=== PATIENT | male | born 1995 | race Caucasian/White ===

== ENCOUNTER 2016-05-08 13:54 | Emergency (ER) | payer OTHER ==
[2016-05-08 14:04] VITALS: BP 125/86; PULSE 79; RESP 20; TEMP 98.5
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
== END 2016-05-08 15:27 | disposition home or self-care (01) ==
LOC: EC 13:54
DX: J02.9 Acute pharyngitis, unspecified (principal); F17.200 Nicotine dependence, unspecified, uncomplicated
CPT/HCPCS: 87081; 87430; 99283

== ENCOUNTER 2017-10-26 10:20 | Day surgery (SDC) | payer BC, OTHER ==
[2017-10-25 08:24] VITALS: BMI 29.5
[~2017-10-26 10:20] MED LIST: LACTATED RINGERS 1,000 ML IV SCH
[2017-10-26] MEDS ORDERED: LIDOCAINE 1% 20 ML VIAL (10MG/ML) FOR IV START INTRADERMA ONE (10:54)
[2017-10-26 11:04] VITALS: RESP 16; TEMP 97.8
[2017-10-26] MEDS ORDERED: LIDOCAINE 1% INJ 10MG/ML (20 ML MDV) ONE (11:32)
[2017-10-26] MEDS ORDERED: PROPOFOL 10 MG/ML 20 ML VIAL IV ONE (11:32)
[2017-10-26 12:10] VITALS: PULSE 56
[2017-10-26 12:24] VITALS: BP 116/62
--- NOTE | 2017-10-26 12:31 | P.PCN ---
Date of Procedure: 10/26/17 Procedure(s) Performed: Procedure: Colonoscopy and biopsy. Preoperative diagnosis: Rectal bleeding and change in bowel habits. Postoperative diagnosis: 1. Exam or the colon and terminal ileum within normal limits. 2. Biopsies obtained from the terminal ileum and randomly from the colon. Preparation: HalfLytely prep. Sedation: Was provided by anesthesia. Brief clinical history: The patient is a 22-year-old male who I have evaluated in the office last month in follow-up for rectal bleeding. He reported having change in his bowels as well with softer, almost diarrheic stools up to 4 times daily. This evaluation is scheduled to rule out inflammatory bowel disease or other pathology. Procedure: With the patient on his left lateral decubitus position and after informed consent and adequate sedation, the perianal area was inspected and it did not show any fissures or fistulas. There were no masses felt on digital rectal examination. The Olympus CFQ 160L video colonoscope was then inserted in the rectum in the usual fashion and advanced to the cecum. I intubated the ileocecal valve and examined the terminal ileum. Terminal ileum and colon appeared healthy with no edema, erythema, friability, ulceration, exudation or spontaneous bleeding. No polyps or tumors were seen or any obvious diverticular disease or other pathology. Because of his symptoms, I obtained biopsies from the terminal ileum and randomly from the colon then I retroflexed the endoscope in the rectum before the endoscope was withdrawn. The patient tolerated the procedure well. Plan: The patient was reassured and I discussed with his mother. Although I did not see any evidence of hemorrhoids or fissures, I suggested that it is possible that he might be bleeding intermittently from a superficial fissure that has healed prior to this evaluation today. I discussed dietary measures and I suggested that he follow-up in the office for additional recommendations based on his course and biopsy results. I will keep you updated on his progress.
== END 2017-10-26 12:33 | disposition home or self-care (01) ==
LOC: ORWHC2ENDO 10:20
DX: K62.5 Hemorrhage of anus and rectum (principal); R19.4 Change in bowel habit; Z79.1 Long term (current) use of non-steroidal anti-inflammatories (NSAID); F17.200 Nicotine dependence, unspecified, uncomplicated
CPT/HCPCS: 88305; 45380; J2001; J2704

== ENCOUNTER 2023-02-01 13:03 | Emergency (ER) | payer BC ==
--- NOTE | 2023-02-01 13:14 | ED ---
General Adult HPI - General Source: patient, RN notes reviewed Mode of arrival: ambulatory Limitations: no limitations <Lucia Cabrear - Last Filed: 02/01/23 13:13> - General Source: RN notes reviewed, old records reviewed - History of Present Illness -: days(s) Location: abdomen Radiation: abdomen Severity scale (1-10): 6 Quality: sharp Consistency: colicky Improves with: none Associated Symptoms: loss of appetite, nausea/vomiting, weakness Treatments Prior to Arrival: none <Fabián Holley - Last Filed: 02/08/23 19:29> - General Chief complaint: GI Bleed Stated complaint: possible gi bleed Time Seen by Provider: 02/01/23 13:05 - History of Present Illness Initial comments: 28-year-old male sent from urgent care for chief complaint of fever, chills, dark stools 2 days. He does admit to abdominal discomfort. He states that it is not evident that he has a bowel movement that he notices the blood. He does that occasionally it is bright red. (Lucia Cabrera) This is a 28-year-old female to the emergency department for evaluation blood in the urine abdominal pain abdominal discomfort nausea vomiting chills fever. Patient has had multiple visits including ER visit in urgent care visit for similar symptoms. The blood is more concerned and makes him more concerned to day with severe pain (Fabián Holley) - Related Data Home Medications Medication Instructions Recorded Confirmed Ibuprofen 200 mg PO Q6HR PRN 10/26/17 10/26/17 Allergies Allergy/AdvReac Type Severity Reaction Status Date / Time No Known Allergies Allergy Verified 10/26/17 10:50 Review of Systems ROS Other: All systems not noted in ROS Statement are negative. <Lucia Cabrera - Last Filed: 02/01/23 13:13> ROS Other: All systems not noted in ROS Statement are negative. <Fabián Holley - Last Filed: 02/08/23 19:29> ROS Statement: Those systems with pertinent positive or pertinent negative responses have been documented in the HPI. 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 RECENT RECTAL BLEEDING, PAIN AND DARK BLACK STOOLS History of Any Multi-Drug Resistant Organisms: None Reported Past Surgical History: Cardiac Ablation Past Anesthesia/Blood Transfusion Reactions: No Reported Reaction Past Psychological History: No Psychological Hx Reported Smoking Status: Never smoker Past Alcohol Use History: Occasional Past Drug Use History: None Reported - Past Family History Father Family Medical History: Cancer Additional Family Medical History / Comment(s): SKIN CANCER <Lucia Cabrera - Last Filed: 02/01/23 13:13> General Exam Limitations: no limitations <Lucia Cabrera - Last Filed: 02/01/23 13:13> General appearance: alert, in no apparent distress Head exam: Present: atraumatic, normocephalic, normal inspection Eye exam: Present: normal appearance, PERRL, EOMI. Absent: scleral icterus, conjunctival injection, periorbital swelling ENT exam: Present: normal exam, mucous membranes moist Neck exam: Present: normal inspection. Absent: tenderness, meningismus, lymphadenopathy Respiratory exam: Present: normal lung sounds bilaterally. Absent: respiratory distress, wheezes, rales, rhonchi, stridor Cardiovascular Exam: Present: regular rate, normal rhythm, normal heart sounds. Absent: systolic murmur, diastolic murmur, rubs, gallop, clicks GI/Abdominal exam: Present: soft, distended, tenderness, guarding, normal bowel sounds. Absent: rebound, rigid Extremities exam: Present: normal inspection, full ROM, normal capillary refill. Absent: tenderness, pedal edema, joint swelling, calf tenderness Back exam: Present: normal inspection Neurological exam: Present: alert, oriented X3, CN II-XII intact Psychiatric exam: Present: normal affect, normal mood Skin exam: Present: warm, dry, intact, normal color. Absent: rash <Fabián Holley - Last Filed: 02/08/23 19:29> - General Exam Comments Initial Comments: Visual Physical Exam Vital signs reviewed General: Well-appearing, nontoxic, no acute distress. Head: Normocephalic, atraumatic Eyes: PERRLA, EOMI ENT: Airway patent Chest: Nonlabored breathing Skin: No visual rash, normal skin tone Neuro: Alert and oriented 3 Musculoskeletal: No gross abnormalities (Lucia Cabrera) Course <Fabián Holley - Last Filed: 12/20/23 19:29> Vital Signs 02/01/23 02/01/23 13:05 17:55 Temperature 99.6 F 98.4 F Pulse Rate 88 59 L Respiratory 18 16 Rate Blood Pressure 104/62 117/60 O2 Sat by Pulse 97 98 Oximetry - Reevaluation(s) Reevaluation #1: Record is reviewed (Fabián Holley) Reevaluation #2: Patient symptoms are improved (Fabián Holley) Reevaluation #3: Patient informed results and questions answered (Fabián Holley) Reevaluation #4: Was pt. sent in by a medical professional or institution (, [facility], [employer], urgent care, hospital, or group home...) When possible be specific @ -no Did you speak to anyone other than the patient for history (EMS, parent, family, police, friend...)? What history was obtained from this source @ -no Did you review nursing and triage notes (agree or disagree)? Why? @ -agree Are old charts reviewed (outside hosp., previous admission, EMS record, old EKG, old radiological studies, urgent care reports/EKG's, group home records)? Report findings @ -yes Differential Diagnosis (chest pain, altered mental status, abdominal pain women, abdominal pain men, vaginal bleeding, weakness, fever, dyspnea, syncope, headache, dizziness, GI bleed, back pain, seizure, CVA, palpatations, mental health, musculoskeletal)? @ -prior EKG interpreted by me (3pts min.). @ -no X-rays interpreted by me (1pt min.). @ -no CT interpreted by me (1pt min.). @ -yes positive for mesenteric adenitis and colitis U/S interpreted by me (1pt. min.). @ -no What testing was considered but not performed or refused? (CT, X-rays, U/S, labs)? Why? @ -none What meds were considered but not given or refused? Why? @ -none Did you discuss the management of the patient with other professionals (professionals i.e. JOANIE Daugherty, [employer], lab, RT, psych nurse, social services coordinator, director [employer] sales, teacher, hospital chief financial officer, case work aide)? Give summary @ -no Was smoking cessation discussed for >3mins.? @ -no Was critical care preformed (if so, how long)? @ -no Were there social determinants of health that impacted care today? How? (Homelessness, low income, unemployed, alcoholism, drug addiction, transportation, low edu. Level, literacy, decrease access to med. care, fpc, rehab)? @ -none Was there de-escalation of care discussed even if they declined (Discuss DNR or withdrawal of care, Hospice)? DNR status @ -no What co-morbidities impacted this encounter? (DM, HTN, Smoking, COPD, CAD, Cancer, CVA, ARF, Chemo, Hep., AIDS, mental health diagnosis, sleep apnea, morbid obesity)? @ -none Was patient admitted / discharged? Hospital course, mention meds given and route, prescriptions, significant lab abnormalities, going to OR and other pertinent info. @ - 28 male with severe abdominal pain here in the ER. Signs and symptoms of mesenteric adenitis with colitis, patient is multiple ER visits and urgent care is a prior to this visit today for the pain is currently controlled patient feels well can be discharged home Discharge Undiagnosed new problem with uncertain prognosis? @ -no Drug Therapy requiring intensive monitoring for toxicity (Heparin, Nitro, Insulin, Cardizem)? @ -no Were any procedures done? @ -no Diagnosis/symptom? @ -Doubt pain, mesenteric adenitis, nausea vomiting diarrhea Acute, or Chronic, or Acute on Chronic? @ -Acute Uncomplicated (without systemic symptoms) or Complicated (systemic symptoms)? @ -Complicated Side effects of treatment? @ -no Exacerbation, Progression, or Severe Exacerbation? @ -exacerbation Poses a threat to life or bodily function? How? (Chest pain, [place], [place], pneumonia, PE, COPD, DKA, ARF, appy, cholecystitis, CVA, Diverticulitis, Homicidal, Suicidal, threat to staff... and all critical care pts) @ -no (Fabián Holley) Medical Decision Making <Lucia Cabrera - Last Filed: 02/01/23 13:13> - Lab Data Result diagrams: 02/01/23 13:11 02/01/23 13:11 - EKG Data -: EKG Interpreted by Me (EKG is sinus 72 DC 143 QRS 103 QTC 394) - Radiology Data Radiology results: report reviewed (CT of the abdomen and pelvis is negative for acute disease), image reviewed <Fabián Holley - Last Filed: 02/08/23 19:29> - Medical Decision Making Quick note preformed by Lucia Cabrera PA-C (Lucia Cabrera) 28 male with severe abdominal pain here in the ER. Signs and symptoms of mesenteric adenitis with colitis, patient is multiple ER visits and urgent care is a prior to this visit today for the pain is currently controlled patient feels well can be discharged home (Fabián Holley) - Lab Data Lab Results 02/01/23 02/01/23 02/01/23 Range/Units 13:11 13:11 13:11 WBC 4.1 (3.8-10.6) k/uL RBC 4.17 L (4.30-5.90) m/uL Hgb 13.1 (13.0-17.5) gm/dL Hct 40.4 (39.0-53.0) % MCV 96.9 (80.0-100.0) fL MCH 31.4 (25.0-35.0) pg MCHC 32.4 (31.0-37.0) g/dL RDW 12.9 (11.5-15.5) % Plt Count 195 (150-450) k/uL MPV 8.0 Neutrophils % 70 % Lymphocytes % 17 % Monocytes % 9 % Eosinophils % 1 % Basophils % 0 % Neutrophils # 2.8 (1.3-7.7) k/uL Lymphocytes # 0.7 L (1.0-4.8) k/uL Monocytes # 0.4 (0-1.0) k/uL Eosinophils # 0.0 (0-0.7) k/uL Basophils # 0.0 (0-0.2) k/uL Sodium 138 (137-145) mmol/L Potassium 4.1 (3.5-5.1) mmol/L Chloride 101 (98-107) mmol/L Carbon Dioxide 26 (22-30) mmol/L Anion Gap 11 mmol/L BUN 9 (9-20) mg/dL Creatinine 0.85 (0.66-1.25) mg/dL Est GFR (CKD-EPI)AfAm >90 (>60 ml/min/1.73 sqM) Est GFR (CKD-EPI)NonAf >90 (>60 ml/min/1.73 sqM) Glucose 101 H (74-99) mg/dL Calcium 9.0 (8.4-10.2) mg/dL Total Bilirubin 0.5 (0.2-1.3) mg/dL AST 23 (17-59) U/L ALT 39 (4-49) U/L Alkaline Phosphatase 70 (38-126) U/L Total Protein 6.6 (6.3-8.2) g/dL Albumin 3.9 (3.5-5.0) g/dL Urine Color Urine Appearance (Clear) Urine pH (5.0-8.0) Ur Specific [place] (1.001-1.035) Urine Protein (Negative) Urine Glucose (UA) (Negative) Urine Ketones (Negative) Urine Blood (Negative) Urine Nitrite (Negative) Urine Bilirubin (Negative) Urine Urobilinogen (<2.0) mg/dL Ur Leukocyte Esterase (Negative) Influenza Type A (PCR) Not Detected (Not Detectd) Influenza Type B (PCR) Not Detected (Not Detectd) RSV (PCR) Not Detected (Not Detectd) SARS-CoV-2 (PCR) Not Detected (Not Detectd) Blood Type Blood Type Recheck Bld Type Recheck Status Antibody Screen Spec Expiration Date 02/01/23 02/01/23 Range/Units 13:11 18:25 WBC (3.8-10.6) k/uL RBC (4.30-5.90) m/uL Hgb (13.0-17.5) gm/dL Hct (39.0-53.0) % MCV (80.0-100.0) fL MCH (25.0-35.0) pg MCHC (31.0-37.0) g/dL RDW (11.5-15.5) % Plt Count (150-450) k/uL MPV Neutrophils % % Lymphocytes % % Monocytes % % Eosinophils % % Basophils % % Neutrophils # (1.3-7.7) k/uL Lymphocytes # (1.0-4.8) k/uL Monocytes # (0-1.0) k/uL Eosinophils # (0-0.7) k/uL Basophils # (0-0.2) k/uL Sodium (137-145) mmol/L Potassium (3.5-5.1) mmol/L Chloride (98-107) mmol/L Carbon Dioxide (22-30) mmol/L Anion Gap mmol/L BUN (9-20) mg/dL Creatinine (0.66-1.25) mg/dL Est GFR (CKD-EPI)AfAm (>60 ml/min/1.73 sqM) Est GFR (CKD-EPI)NonAf (>60 ml/min/1.73 sqM) Glucose (74-99) mg/dL Calcium (8.4-10.2) mg/dL Total Bilirubin (0.2-1.3) mg/dL AST (17-59) U/L ALT (4-49) U/L Alkaline Phosphatase (38-126) U/L Total Protein (6.3-8.2) g/dL Albumin (3.5-5.0) g/dL Urine Color Light Yellow Urine Appearance Clear (Clear) Urine pH 6.0 (5.0-8.0) Ur Specific [place] 1.010 (1.001-1.035) Urine Protein Negative (Negative) Urine Glucose (UA) Negative (Negative) Urine Ketones 3+ H (Negative) Urine Blood Negative (Negative) Urine Nitrite Negative (Negative) Urine Bilirubin Negative (Negative) Urine Urobilinogen <2.0 (<2.0) mg/dL Ur Leukocyte Esterase Negative (Negative) Influenza Type A (PCR) (Not Detectd) Influenza Type B (PCR) (Not Detectd) RSV (PCR) (Not Detectd) SARS-CoV-2 (PCR) (Not Detectd) Blood Type B Positive Blood Type Recheck B Pos Bld Type Recheck Status No Antibody Screen NEGATIVE Spec Expiration Date 02/04/2023 - 2310 Disposition <Lucia Cabrera - Last Filed: 02/01/23 13:13> Is patient prescribed a controlled substance at d/c from ED?: No Time of Disposition: 17:00 <Fabián Holley - Last Filed: 02/08/23 19:29> Clinical Impression: Mesenteric adenitis, Colitis Disposition: HOME SELF-CARE Condition: Good Instructions (If sedation given, give patient instructions): Mesenteric Adenitis (ED), Colitis (ED) Referrals: Erich Morales PAC [REFERRING] - 1-2 days
[2023-02-01 14:01] LABS: Basophils % (A) 0 %; Eosinophils % (A) 1 %; HCT 40.4 % (39.0-53.0); HGB 13.1 gm/dL (13.0-17.5); Lymphocytes # (A) 0.7 k/uL (1.0-4.8); Lymphocytes % (A) 17 %; MCH 31.4 pg (25.0-35.0); MCHC 32.4 g/dL (31.0-37.0); MCV 96.9 fL (80.0-100.0); Monocytes # (A) 0.4 k/uL (0-1.0); Monocytes % (A) 9 %; Neutrophils # (A) 2.8 k/uL (1.3-7.7); Neutrophils % (A) 70 %; Platelet Count 195 k/uL (150-450); RBC 4.17 m/uL (4.30-5.90); RDW 12.9 % (11.5-15.5); WBC 4.1 k/uL (3.8-10.6)
[2023-02-01 14:16] LABS: ALT 39 U/L (4-49); AST 23 U/L (17-59); African American GFR (CKD) >90 (>60 ml/min/1.73 sqM); Albumin 3.9 g/dL (3.5-5.0); Alkaline Phosphatase 70 U/L (38-126); Anion Gap 11 mmol/L; Blood Urea Nitrogen 9 mg/dL (9-20); Carbon Dioxide 26 mmol/L (22-30); Chloride 101 mmol/L (98-107); Glucose 101 mg/dL (74-99); Non-African American GFR(CKD) >90 (>60 ml/min/1.73 sqM); Potassium 4.1 mmol/L (3.5-5.1); Sodium 138 mmol/L (137-145); Total Bilirubin 0.5 mg/dL (0.2-1.3); Total Protein 6.6 g/dL (6.3-8.2)
[2023-02-01] MEDS ORDERED: PANTOPRAZOLE 40 MG/10 ML VIAL IVP STA (15:57)
[2023-02-01] MEDS ORDERED: ACETAMINOPHEN IV (For NPO) 1,000 MG in EMPTY BAG 1 BAG IVPB STA (15:57)
[2023-02-01] MEDS ORDERED: KETOROLAC 15 MG/ML 1 ML VIAL IVP STA (15:57)
[2023-02-01] MEDS ORDERED: SODIUM CHLORIDE 0.9% 2,000 ML IV STA (15:57)
[2023-02-01] MEDS ORDERED: PROCHLORPERAZINE INJ 10 MG/2 ML VIAL IVP STA (15:57)
--- NOTE | 2023-02-01 16:42 | CT ---
EXAMINATION TYPE: CT abdomen pelvis w con DATE OF EXAM: 02/01/2023 COMPARISON: 05/06/2015 INDICATION: Mid abdominal pain, fever, dark, tarry stools. DLP: 1202 mGycm, Automated exposure control for dose reduction was used. CONTRAST: 100 ml mL of Isovue 300. Study performed without Oral Contrast TECHNIQUE: Axial images were obtained from above the diaphragm to the pubic rami in the axial plane a t 5 mm thick sections. Reconstructed images are reviewed on the computer in the coronal plane. FINDINGS: Limited CT sections are obtained the lung bases. The lung bases are clear. CT ABDOMEN: Liver: Normal Spleen: Normal Pancreas: Normal Adrenal glands: The adrenal glands are normal. Gallbladder: Normal Kidneys: No masses are evident. No hydronephrosis is present. No cysts are present. No renal stone s are evident. Aorta: Normal Inferior vena cava: Normal. CT PELVIS: There are several prominent lymph nodes in the right lower quadrant. Some mild wall thicke prince of the ascending colon may be present. There may be some fluid within the colon. This study is without oral contrast limiting bowel evaluati on. Appendix: Normal as visualized. Urinary bladder: Normal. Genitourinary structures: Prostate appears unremarkable Osseous structures: No suspicious lytic or sclerotic lesions. IMPRESSION: 1. Clinical consideration for mild ascending colon colitis. 2. Multiple prominent lymph nodes within the right lower quadrant. Correlate for mesenteric adenitis. 3. The appendix is visualized is normal
[2023-02-01 18:14] VITALS: BP 117/60; PULSE 59; RESP 16; TEMP 98.4
[2023-02-01] MEDS ORDERED: ONDANSETRON 4 MG ODT STARTER PACK 2 TAB BTL PO STA (18:41)
[2023-02-01] MEDS ORDERED: ACET/COD 300 MG/30 MG STARTER PACK 6 TAB BTL PO STA (18:41)
[2023-02-01 19:07] LABS: Appearance,Urine Clear (Clear); Color,Urine Light Yellow; Glucose,Urine (UA) Negative (Negative); Protein,Urine Negative (Negative)
[2023-02-01 19:08] LABS: Bilirubin,Urine Negative (Negative); Blood,Urine Negative (Negative); Ketones,Urine 3+ (Negative); Leukocyte Esterase,Urine Negative (Negative); Nitrite,Urine Negative (Negative); Urobilinogen,Urine <2.0 mg/dL (<2.0)
== END 2023-02-01 18:41 | disposition home or self-care (01) ==
LOC: EC 13:03
DX: I88.0 Nonspecific mesenteric lymphadenitis (principal); K52.9 Noninfective gastroenteritis and colitis, unspecified; Z20.822 Contact with and (suspected) exposure to COVID-19
CPT/HCPCS: 36415; 93005; 86900; 86901; 80053; 85025; 86850; 81003; 87636; 74177; 99285; 96365; 96375 ×3; 96361; J0780; J0131; J1885; S0119; C9113; Q9967